=== PATIENT | female | born 1960 | race Two or more races ===

== ENCOUNTER 2017-01-30 13:02 | Emergency (ER) | payer OTHER ==
[~2017-01-30] VITALS: Ht 172.7 cm; Wt 81.6 kg
[2017-01-30] MEDS ORDERED: IBUPROFEN600 MG ORAL (14:06)
[2017-01-30] MEDS ORDERED: PROMETHAZINE-D118 ML ORAL (14:06)
[2017-01-30] MEDS ORDERED: AMOXICILLIN500 MG ORAL (14:06)
[2017-01-30 14:25] VITALS: BP 130/84
--- NOTE | 2017-01-30 21:30 | Emergency Room Report ---
History of Present Illness General Chief Complaint: Upper Respiratory Illness Source: Patient Present Illness HPI The patient is a 56-year-old female presenting for cough for the past week. The patient states that she is coughing so frequently that it becomes hard to breathe. Patient states that she experiences a 7/10 dull ache to the back of her throat which is worse with coughing and swallowing. Patient also noticed white spots in the near. Patient admits to subjective fevers. Patient denies any other symptoms including nausea, vomiting, chills, night sweats, headache, dizziness, blurred vision, neck pain or stiffness. Patient denies any recent travel Allergies: Coded Allergies: No Known Allergies (Unverified , 01/30/17) Patient History Past Medical History: see triage record Pertinent Family History: none Last Menstrual Period: na Reviewed Nursing Documentation: PMH: Agreed, PSxH: Agreed Nursing Documentation-PMH Past Medical History: No History, Except For Review of Systems All Other Systems: negative except mentioned in HPI Physical Exam Vital Signs Date Time Temp Pulse Resp B/P Pulse Ox O2 Delivery O2 Flow Rate FiO2 01/30/17 13:14 98.4 111 24 135/90 99 Room Air Sp02 EP Interpretation: reviewed, normal General Appearance: no apparent distress, alert, GCS 15, non-toxic Head: normocephalic, atraumatic Eyes: bilateral eye PERRL, bilateral eye normal inspection ENT: hearing grossly normal, no angioedema, normal voice, tonsillar swelling, pharyngeal erythema, tonsillar exudate Neck: full range of motion, supple/symm/no masses Respiratory: chest non-tender, lungs clear, normal breath sounds, no wheezing, speaking full sentences Cardiovascular #1: regular rate, rhythm, no edema Musculoskeletal: back normal, gait/station normal, normal range of motion, non- tender Neurologic: alert, oriented x3, responsive, motor strength/tone normal, sensory intact, speech normal Psychiatric: judgement/insight normal, memory normal, mood/affect normal, no suicidal/homicidal ideation Skin: normal color, no rash, warm/dry, well hydrated Medical Decision Making PA Attestation Dr. Mcdaniel is my supervising physician. Patient management was discussed with my supervising physician Diagnostic Impression: Primary Impression: Pharyngitis, acute ER Course The patient is a 56-year-old female presenting for cough for the past week. Differential diagnosis include but not limited to pharyngitis, sinusitis, AOM, bronchitis, PNA Physical exam: Vitals within normal limits. Afebrile. No apparent distress HEENT exam: There is bilateral tonsillar edema, erythema, and exudate. Uvula midline. Moist mucous membranes. There is bilateral cervical lymphadenopathy. Lungs are clear to auscultation bilaterally Skin is warm and dry. No rash The patient will be discharged home with a prescription for amoxicillin and is given ER precautions. Patient will followup with primary care Last Vital Signs Date Time Temp Pulse Resp B/P Pulse Ox O2 Delivery O2 Flow Rate FiO2 01/30/17 14:25 98.2 87 18 130/84 100 Room Air Status: improved Disposition: HOME, SELF-CARE Condition: Improved Scripts Amoxicillin* (AMOXIL*) 500 Mg Capsule 500 MG ORAL BID, #20 CAP Prov: JAYSON STEARNS.AErnestine 01/30/17 Ibuprofen* (MOTRIN*) 600 Mg Tablet 600 MG ORAL Q8H Y for For Pain, #30 TAB 0 Refills Prov: JAYSON STEARNS 01/30/17 D-Methorphan Hb/Prometh Hcl* (PROMETHAZINE-DM SYRUP*) 118 Ml Syrup 5 ML ORAL Q6H Y for For Cough, #118 ML 0 Refills Prov: JAYSON STEARNS 01/30/17 Referrals: NON PHYSICIAN (PCP) Patient Instructions: Upper Respiratory Infection, Adult Additional Instructions: I discussed my findings with the patient. All questions and concerns have been answered. Treatment and medication compliance have been addressed. I advised the patient that they need to follow up with PMD in 3-5 days. Return to ED if pain remains or worsens, cough worsens or remains, you notice blood in your sputum, you notice wheezing, you experience a fever, or if needed for any reason. Patient verbalized understanding of discharge instructions. JAYSON STEARNS Jan 30, 2017 21:30
== END 2017-01-30 14:27 | disposition home or self-care (01) ==
LOC: EMR 14:10
DX: J02.9 Acute pharyngitis, unspecified (principal)
CPT/HCPCS: 99284